=== PATIENT | male | born 1965 | race American Indian/Alaskan Native ===

== ENCOUNTER 2019-09-26 07:19 | Day surgery (SDC) | payer OTHER ==
[~2019-09-26 07:19] MED LIST: WATER FOR IRRIG STERILE 1,000 ML BOTTLE ONE; WATER FOR IRRIG STERILE 250 ML BOTTLE IR ONE
[2019-09-26] MEDS ORDERED: SODIUM CHLORIDE 0.9% 1000 ML 1,000 ML IV SCH (08:00)
[2019-09-26] MEDS ORDERED: SODIUM CHLORIDE 0.9% 1000 ML 1,000 ML ONE (08:04)
--- NOTE | 2019-09-26 08:09 | Anesthesia Consultation ---
Anesthesia Consult and Med Hx Date of service: 09/26/19 - Airway Anesthetic Teeth Evaluation: Good ROM Head & Neck: Adequate Mental/Hyoid Distance: Adequate Mallampati Class: Class II Intubation Access Assessment: Probably Good - Pulmonary Exam CTA: Yes - Cardiac Exam Cardiac Exam: RRR - Pre-Operative Health Status ASA Pre-Surgery Classification: ASA2 Proposed Anesthetic Plan: MAC - Pulmonary Hx Smoking: No Hx Respiratory Symptoms: No - Cardiovascular System Hx Hypertension: No Hx Heart Attack/AMI: No - Central Nervous System CVA: No - Endocrine Hx Renal Disease: No Hx Liver Disease: No Hx Non-Insulin Dependent Diabetes: Yes Hx Thyroid Disease: No - Other Systems Hx Obesity: No
--- NOTE | 2019-09-26 08:09 | Anesthesia Day of Surgery ---
Anesthesia Day of Surgery - Day of Surgery Patient Examined: Yes Patient H&P Reviewed: Yes Patient is NPO: Yes
[2019-09-26] MEDS ORDERED: propofoL 200 MG/20 ML VIAL IV ONE ×2 (08:28)
[2019-09-26] MEDS ORDERED: LIDOCAINE MPF (2%) 20 MG/1 ML VIAL 5 ML ONE (08:50)
--- NOTE | 2019-09-26 09:31 | Short Stay Summary ---
Short Stay Documentation Date of service: 09/26/19 Narrative H&P: The patient presents for his first screening colonoscopy. Average risk profile. - History Past Medical History: diabetes Past Surgical History: No surgical history Social history: no significant social history, no smoking, no alcohol abuse - Allergies and Medications Current Medications: Allergies No Known Allergies Allergy (Unverified 09/26/19 07:59) Active Medications Sodium Chloride (Nacl 0.9% 1000 Ml) 1,000 mls @ 50 mls/hr IV DIRECT FRANCK - Physical exam General appearance: no acute distress, well-nourished Integumentary: no rash, no growths, no abnormal pigmentation HEENT: Atraumatic, PERRLA, EOMI, Mucous membr. moist/pink Lungs: Clear to auscultation, Normal air movement Breasts: deferred Heart: Regular rate, Normal S1, Normal S2, No murmurs Gastrointestinal: normoactive bowel sounds, no tenderness, no distended, no masses, no guarding, no hepatomegaly, no splenomegaly, no obese Male Genitourinary: deferred Rectal Exam: normal rectal tone, no mass Extremities: no ischemia, pulses intact, pulses symmetrical, No edema, normal temperature, normal color, Full ROM Neurological: Normal gait, Normal speech, Strength at 5/5 X4 ext, Normal tone, Sensation intact, Cranial nerves 3-12 NL - Brief post op/procedure progress note Date of procedure: 09/26/19 Findings: see dictation Estimated blood loss: none Pathology: none Condition: stable - Disposition Condition at discharge: Good Disposition: DC-01 TO HOME OR SELFCARE - Discharge Diagnoses (1) Colon cancer screening Status: Acute Short Stay Discharge Plan Activity: other (No driving for 24 hours) Weight Bearing Status: Full Weight Bearing Diet: diabetic Follow up with: PRIMARY CAREMD [Primary Care Provider] - 7 Days
--- NOTE | 2019-09-26 09:33 | Operative Report ---
Operative Report Operative Report: Date of procedure: 09/26/2019 Preprocedure diagnosis: Colon cancer screening, average risk. No prior studies. Post procedure diagnosis: Normal study Procedure: Colonoscopy to the cecum Endoscopist: Dr. Mckinney Anesthesia: Monitored anesthesia care per anesthesia department Estimated blood loss: 0 Medications: Monitored anesthesia care. See separate report by anesthesia for details. After careful discussion of the nature and purpose of the procedure as well as details of the technique risks benefits and alternatives the patient gave consent. Please see recent history and physical from the office. The patient was placed in the left lateral decubitus position and medicated per anesthesia. A rectal exam was performed sphincter tone was normal there were no masses palpable. The [employer] 570 scope was passed transanally and advanced under continuous direct vision without difficulty to the cecum. The colon was well prepared. The cecum was normal. The ascending colon was normal and on forward and retroflexed views. The transverse colon, descending colon, and sigmoid colon were normal. The rectum was normal on forward and retroflexed views. The procedure was well-tolerated overall and the patient was observed in recovery. Conclusions: Normal colonoscopy to the cecum. Plan: Repeat colonoscopy in 10 years, sooner if clinically indicated. Signed electronically: Davis Mckinney M.D.
[2019-09-26 10:08] VITALS: BP 148/82
--- NOTE | 2019-09-26 11:09 | Post Anesthesia Evaluation ---
- Post Anesthesia Evaluation Patient Participated: Yes Airway Patent: Yes Stable Respiratory Function: Yes Nausea/Vomiting: No Temp > 96.8F: Yes Pain Manageable: Yes Adequeate Hydration: Yes Anesthesia Complications: No
== END 2019-09-26 07:20 | disposition home or self-care (01) ==
LOC: GIO 07:19
PROVIDERS: ATTEND Internal Medicine Gastroenterology
DX: Z12.11 Encounter for screening for malignant neoplasm of colon (principal); E11.9 Type 2 diabetes mellitus without complications
CPT/HCPCS: 45378; 82962; J2704; J7030